=== PATIENT | female | born 1960 | race Caucasian/White ===

== ENCOUNTER 2017-04-24 15:24 | Emergency (ER) | payer MEDICARE, OTHER ==
--- NOTE | ~2017-04-24 | CR72 ---
[facility] A Service of [facility] & [facility] RADIOLOGY TEXT RESULTS PATIENT: BARAK RAMÍREZ LOCATION: [facility] : 56 UNIT #: [id number] AGE: [address]: Ry Prince MD SEX: F ORDER DR: [id number] [facility] [address] [place], [place] [address] [id number] E MR#: [id number] Acc #: [id number] NAME: BARAK RAMÍREZ. : 1960 SEX: F STUDY DATE/TIME: 04/24/2017 17:44 UNIT: [facility] ROOM: STUDY DESCRIPTION: CR Chest Single View Portable Attending Physician: Ry Prince M.D. Ordering Physician: Ed Derrick Domínguez M.D. Primary Care Physician: [facility], MEDICAL IMAGING REPORT This report is preliminary unless electronic signature is present EXAM Portable chest, 04/24/2017 HISTORY 56-year-old female with chest pain beginning today. COMPARISON Chest, 12/13/2016 FINDINGS Frontal chest demonstrates clear lungs. No pleural effusion or pneumothorax. Mild cardiomegaly is stable. Mediastinum and pulmonary vasculature unremarkable. IMPRESSION Stable mild cardiomegaly. No other acute chest findings. Dictated by... Bobby Santamaria M.D. THIS IS AN ELECTRONICALLY VERIFIED REPORT Bobby Santamaria M.D. at 04/25/2017 10:24 AM XAVI/agus TD: 04/24/2017 18:41 JOB #: [id number] MEDICAL IMAGING REPORT Page 1 of 1 COPY
--- NOTE | ~2017-04-24 | EKG ---
PATIENT: BARAK RAMÍREZ UNIT #: [id number] Ventricular Rate: 67 BPM Atrial Rate: 67 BPM P-R Interval: 158 ms QRS Duration: 72 ms Q-T Interval: 432 ms QTC Calculation(Bezet): 456 ms P [place]: 54 degrees Calculated R [place]: -18 degrees Calculated T [place]: 54 degrees Diagnosis Line: Normal sinus rhythm Diagnosis Line: Normal ECG Diagnosis Line: When compared with ECG of 13-DEC-2016 17:25, Diagnosis Line: No significant change was found Diagnosis Line: Confirmed by JUAN TERRAZAS MD ([id number]) on Diagnosis Line: 04/24/2017 10:54:21 PM INTERPRETING MD: ALLYSSA
[~2017-04-24 15:24] MED LIST: ACETAMINOPHEN650 M3 PO; ALBUTEROL17 G1 IH; ALBUTEROL17 GM INH; ASPIRIN81 M1 PO; ASPIRIN81 MG PO; ATENOLOL PO; ATENOLOL25 MG PO; BAYER ASPIRIN325 M1 PO; CIPRO PO; COMBIVENT INH14.7 GM INH; DOCUSATE SODIU100 MG; FLEXERIL10 MG PO; GABAPENTIN800 MG PO; HYDROCHLOROTHIA25 MG PO; IBUPROFEN PO; IBUPROFEN800 MG PO; KEFLEX PO; LISINOPRIL-HCTZ1 T18 PO; LISINOPRIL-HCTZ1 T19 PO; LOPRESSOR PO; LORTAB 10-5001 EACH; LORTAB 10-5001 EACH PO; LORTAB 5/500 TA1 TA1 PO; MEDROL PO; NAPROSYN500 MG PO; NEURONTIN PO; NEURONTIN300 MG PO; NEURONTIN800 MG PO; NITROGLYGERIN0.4 MG SL; NORCO 5/325 TAB1 TAB PO; ORUDIS75 M1 DOB; ORUDIS75 M1 PO; PERCOCET5/325 PO; PHARMACY; PHENERGAN PO; PREDNISONE PO; PROZAC PO; PROZAC40 MG DOB; PROZAC40 MG PO; SKELAXIN PO; TENORMIN25 MG PO; UNKNOWN BP MED PO; VIBRAMYCIN100 M1 DOB; VICODIN; VICODIN 5/1 TAB 5/50 PO; VICODIN 5/500 T1 TAB PO; VICODIN PO; VISTARIL PO; VOLTAREN75 MG PO; ZANTAC PO; ZITHROMAX PO; ZITHROMAX1 G/PKT PO; ZOLOFT
[2017-04-24 17:55] LABS: BASOPHIL# 0.1 X10e3 (0-0.3); BASOPHIL% 0.5 % (0-2.5); EOSINOPHIL# 0.3 X10e3 (0-0.7); EOSINOPHIL% 2.5 % (0.0-7.0); HEMATOCRIT 43.4 % (35.0-45.0); HEMOGLOBIN 14.2 gm/dL (12.0-16.0); LYMPHOCYTE# 1.6 X10e3 (1.0-3.5); LYMPHOCYTE% 14.7 % (17.0-45.0); MEAN CELL VOLUME 93.6 FL (83-96); MEAN CORPUSCULAR HEMOGLOBIN 30.6 PG (28-34); MEAN CORPUSCULAR HGB CONC 32.7 g/dL (30-36); MONOCYTE# 0.8 X10e3 (0-1.0); MONOCYTE% 7.5 % (3.0-12.0); NEUTROPHIL# 8.3 X10e3 (1.5-7.1); NEUTROPHIL% 74.8 % (40-75); PLATELET COUNT 208 X10e3 (140-420); RED BLOOD COUNT 4.64 X10e (3.90-5.30); RED CELL DISTRIBUTION WIDTH 13.1 % (11.0-15.5); WHITE BLOOD COUNT 11.1 X10e3 (4.0-10.5)
[2017-04-24 17:56] LABS: DIFF IND NO
[2017-04-24 17:59] LABS: POC - CKMB 1.2 ng/mL (0.0-7.9); POC - TROPONIN <0.05 ng/mL (<=0.05)
[2017-04-24 18:09] LABS: PARTIAL THROMBOPLASTIN TIME 24.8 SECONDS (23.5-31.3); PROTHROMBIN TIME (PATIENT) 10.7 SECONDS (10.0-11.7)
[2017-04-24 18:20] LABS: ALBUMIN SERUM 3.9 g/dL (3.5-5.0); BILIRUBIN, DIRECT 0.1 mg/dL (0.0-0.2); BILIRUBIN,INDIRECT 0.6 mg/dL (0.0-0.9); BILIRUBIN,TOTAL 0.7 mg/dL (0.2-2.0); BUN/CREATININE RATIO 18.88; CALCIUM SERUM 8.9 mg/dL (8.4-10.2); CREATININE SERUM 0.9 mg/dL (0.6-1.4); GLOM FILT RATE Estimated 70.5 mL/min (>60)
[2017-04-24 19:31] LABS: POC - CKMB <1.0 ng/mL (0.0-7.9); POC - TROPONIN <0.05 ng/mL (<=0.05)
== END 2017-04-24 20:15 | disposition home or self-care (01) ==
LOC: CED 15:24
PROVIDERS: Emergency Medicine
DX: R10.10 Upper abdominal pain, unspecified (principal); R07.9 Chest pain, unspecified; R11.2 Nausea with vomiting, unspecified; I10 Essential (primary) hypertension; J45.909 Unspecified asthma, uncomplicated; J44.9 Chronic obstructive pulmonary disease, unspecified; Z88.0 Allergy status to penicillin
CPT/HCPCS: 36415; 71010; 80048; 80076; 82150; 82553; 83690; 84484; 85025; 85610; 85730; 93005; 99284